=== PATIENT | male | born 1965 | race Caucasian/White ===

== ENCOUNTER 2019-08-31 05:44 | Day surgery (SDC) | payer MEDICAID ==
[~2019-08-31] VITALS: Ht 170.2 cm; Wt 128.4 kg
[2019-08-31] VITALS (16 sets, daily range): BP systolic 98–134; BP diastolic 59–96; BMI 43.2; BMI 44.4
[~2019-08-31 05:44] MED LIST: FLOMAX0.4 MG PO; HYDROCODON-ACE1 EA10 PO; MOBIC7.5 MG PO; NEURONTIN600 MG PO; OMEPRAZOLE20 M1 PO; SINGULAIR10 MG PO; SYNTHROID25 MCG PO; WELLBUTRIN XL150 M1 PO
[2019-08-31 06:17] LABS: HEMATOCRIT 46.7 % (42.0-54.0); HEMOGLOBIN 15.5 g/dL (13.5-17.5); MCH 29.8 pg (26.0-34.0); MCHC 33.2 g/dL (31.0-37.0); MCV 89.8 fL (80.0-100.0); MEAN PLATELET VOLUME 12.6 fL (7.4-10.4); RBC 5.2 10x6/uL (4.20-6.10); WBC 8.3 10x3/uL (4.8-10.8)
[2019-08-31] MEDS ORDERED: ALBUTEROL SULF8.5 GM INH (07:00)
--- NOTE | 2019-08-31 10:30 | NUR ---
PT ARRIVED ON UNIT. HOOKED UP TO ICU MONITORS. STARTING ADMISSION ASSESSMENT.
--- NOTE | 2019-08-31 11:45 | NUR ---
PT BELONGINGS BROUGHT TO PT ROOM BY OUTPATIENT. STILL AWAITING PT PHONE AND WALLET FROM [facility].
--- NOTE | 2019-08-31 13:00 | NUR ---
PT RESTING IN BED PLAYING ON PHONE. NO VISIBLE SIGNS OF DISTRESS NOTED. WILL CONTINUE TO MONITOR
--- NOTE | 2019-08-31 16:02 | NUR ---
ASKED THE PT IF HE WAS HURTING. PT STATED "DONT BE MAD AT ME, BUT I TOOK MY OWN NORCO 10" PTS BACK PACK AT IN HIS BED WITH THE PT. PT ADMITTED TO HAVING SOME MEDICATION IN THE BAG AND WILLING GAVE THEM TO ME. MEDICATION COUNTED AND SENT TO THE PHARMACY. SEE CHART FOR DETAILS.
--- NOTE | 2019-08-31 16:12 | NUR ---
DR BOUCHER PAGED BACK. START AMIODORONE GTT 1MG/H FOR FOR 6 HOURS THEN DECREASE TO 0.5MG/H
--- NOTE | 2019-08-31 16:41 | NUR ---
WATER PROVIDED FOR THE PT. DENIES ANY OTHER NEEDS AT THIS TIME.
--- NOTE | 2019-08-31 17:35 | NUR ---
PT ATE REGULAR TEXTURE FOOD WITH NO ISSUES. WILL CONT PO.
--- NOTE | 2019-08-31 19:00 | NUR ---
SUPINE IN BED, A&O X 4. REPORTS PAIN OF 6-7/10 TO ACF INCISION. ICE PACK IN USE. TOLERATED MEAL, DENIES N/V. VS STABLE. NO NEEDS VOICED AT THIS TIME.
--- NOTE | 2019-08-31 22:00 | NUR ---
A&0 X 4. VS STABLE. ICE PACK REPLACED. REQUESTS SNACKS. DENIES FURTHER NEEDS. WILL CONTINUE TO MONITOR.
--- NOTE | 2019-08-31 23:00 | NUR ---
SITTING UP IN BED, DENIES PAIN. VS STABLE. REQUESTS COFFEE. CONTINUE PLAN OF CARE.
[2019-09-01] VITALS (7 sets, daily range): BP systolic 106–153; BP diastolic 65–101; Ht 170.2 cm; Wt 128.4 kg
--- NOTE | 2019-09-01 01:00 | NUR ---
UP IN ROOM, LINENS CHANGED. NO FURTHER NEEDS VOICED AT THIS TIME.
--- NOTE | 2019-09-01 03:00 | NUR ---
SUPINE IN BED, EYES CLOSED, CHEST RISE NOTED, NO S/SX OF DISTRESS.
[2019-09-01 04:37] LABS: CALC OSMOLALITY 279 mosm/kg (275-300); CALCIUM 8.9 mg/dL (8.5-10.1); CARBON DIOXIDE 23.2 mmol/L (21.0-32.0); CHLORIDE - SERUM 104 mmol/L (98-107); GLUCOSE 159 mg/dL (74-106); POTASSIUM - SERUM 4.3 mmol/L (3.5-5.1); PRO BNP 81 pg/mL (0-125); SODIUM 138 mmol/L (136-145); UREA NITROGEN 16 mg/dL (7-18); eGFR NON AFRICAN AMERICAN 83 mL/min (90-120)
--- NOTE | 2019-09-01 05:00 | NUR ---
SITTING UP IN BED, NO NEEDS VOICED AT THIS TIME, CONTINUE PLAN OF CARE
--- NOTE | 2019-09-01 05:38 | NUR ---
I have reviewed this patient and I concur with the Shift Assessment completed by the Licensed Practical Nurse today this shift.
--- NOTE | 2019-09-03 08:54 | OP ---
PATIENT NAME: MARCELLO SEGURA MEDICAL RECORD: [id number] :65 LOCATION:[facility] ADMISSION DATE: SURGEON: ANGEL CHRISTOPHER MD DATE OF OPERATION: 08/31/2019 DATE OF SERVICE: 08/31/2019 PREOPERATIVE DIAGNOSES: Osteophyte formation and disc herniation at C6-C7 with right C7 radiculopathy. POSTOPERATIVE DIAGNOSES: Osteophyte formation and disc herniation at C6-7 with right C7 radiculopathy. PROCEDURE: Anterior cervical discectomy and fusion at C6-C7 with PEEK interbody cage, separate anterior cervical plate and screws from [employer] removal of osteophytes, Sherrill bone allograft with bone stem cells, PEEK interbody cage. SURGEON: Angel Christopher MD DESCRIPTION AND TECHNIQUE: After induction of general endotracheal anesthesia, the patient was positioned supine on the operating table. Neck was prepped and draped in usual sterile fashion. Fluoroscopic x-ray and freer localized the C6-C7 interspace. After infiltration of 1:100,000 epinephrine with 1% lidocaine, a transverse skin incision was carried out from the midline to the sternocleidomastoid muscle. The platysma was divided with a #15 blade. Using blunt and sharp dissection with Metzenbaum scissors, I proceeded in the avascular plane medial to the carotid sheath. The C6-C7 interspace was identified with fluoroscopic x-ray and a spinal needle. The longus colli muscles were elevated from bodies of C6 and C7. The osteophytes drilled away anteriorly with the Midas-Chong drill. [place] distracting pins were placed by the C6, and C7. Disc space was incised under distraction. Disc material was removed with pituitary rongeurs and curettes. Osteophytes were drilled away posteriorly with Midas-Chong drill and microscope. The posterior longitudinal ligament was removed with Cloward rongeurs. Following this, the dura was decompressed well. An 8 mm PEEK interbody cage was placed in the disc space under distraction. Prior to this, it was filled with Sherrill bone allograft with stem cells. [facility] anterior cervical plate and screws was used to span the C6-C7 interspace. A 18 mm screws were placed through the holes in the plate. Locking cams were tightened down over the screw heads. Good position of hardware was confirmed with fluoroscopic x-ray. Meticulous hemostasis was maintained throughout the wound. The wound was irrigated with copious amounts of Ancef irrigant solution. The platysma and subdermal layer closed with interrupted 4-0 Vicryl suture. The skin was reapproximated with Steri-Strips and benzoin. A sterile dressing was applied to the wound. The patient was awakened in good condition and taken to recovery. All counts were reported as correct. Estimated blood loss was minimal. TRANSINT:[id number] Voice Confirmation ID: [id number] DOCUMENT ID: [id number] OPERATIVE REPORT [id number] MARCELLO SEGURA, ANGEL VINES at 0854 CC: [id number] DICTATION DATE: 08/31/19 0949 PAPER INSERTER: 08/31/19 1356 [facility] 09/01/[address] [address]
== END 2019-09-01 10:53 | disposition home or self-care (01) ==
LOC: D.OPS 05:44 → D.ICU 10:06 → D.OPS 09-01 10:53
PROVIDERS: Anesthesiology; Family Medicine; ATTEND Neurological Surgery
DX: M50.123 Cervical disc disorder at C6-C7 level with radiculopathy (principal); M25.78 Osteophyte, vertebrae; J44.9 Chronic obstructive pulmonary disease, unspecified; E07.9 Disorder of thyroid, unspecified; Z72.0 Tobacco use; K21.9 Gastro-esophageal reflux disease without esophagitis